=== PATIENT | male | born 1965 | race Caucasian/White ===

== ENCOUNTER → 2020-10-27 10:53 | Outpatient (BNVA) | payer BC, SELFPAY | PROVIDERS: Family Provider General Practice; PCP General Practice; Visit Provider Emergency Medicine | DX: Z20.828 Contact with and (suspected) exposure to other viral communicable diseases (principal) | CPT/HCPCS: 87635 ==

== ENCOUNTER 2025-04-02 15:16 | Oncology outpatient (recurring) (ONCR) | payer BC, SELFPAY ==
[2025-04-02 16:44] LABS: Hematocrit 38.7 % (37-53); Hemoglobin 12.90 g/dL (11.27-16.99); Mean Corpuscular HGB Conc 33.3 g/dL (30-55); Mean Corpuscular Hemoglobin 28.6 pg (27-33); Mean Corpuscular Volume 85.8 fl (82-101); Nucleated Red Blood Cells % 0 %; Platelet Count 116 10^3/cmm (157-399); Red Blood Count 4.51 10^6/uL (3.85-5.65); White Blood Count 5.28 10^3/uL (3.29-11.43)
[2025-04-02 17:11] LABS: Alanine Aminotransferase 37 U/L (0-41); Albumin Level 4.6 g/dL (3.5-5.2); Alkaline Phosphatase 114 U/L (40-130); Anion Gap 19.4 (5-19); Aspartate Amino Transferase 28 U/L (0-40); Blood Urea Nitrogen 15 mg/dL (8-23); Calcium 9.3 mg/dL (8.5-10.5); Carbon Dioxide 20 mmol/L (22-29); Chloride 104 mmol/L (98-107); Creatinine Clr Calc Pharmacy 102.7236; Ferritin 70 ng/mL (30-400); Globulin 2.5 g/dL (1.3-4.6); Glucose 254 mg/dL (65-115); Iron 64 ug/dL (59-158); Osmolality Calculated 299 mOsm/kg (285-295); Potassium 3.4 mmol/L (3.5-5.1); Sodium 140 mmol/L (136-145); Total Iron Binding Capacity 311 mcg/dl; Total Protein 7.1 g/dL (6.6-8.7); Unsaturated Iron Binding 247 ug/dL (112-347)
[2025-04-02 17:23] LABS: Vitamin B12 381 pg/mL (232-1245)
[2025-04-02 19:59] LABS: Hepatitis A Antibody IgM Non-Reactive (Nonreactive); Hepatitis B Surface Antigen Non-Reactive (Nonreactive)
== END 2025-04-14 23:59 | disposition home or self-care (01) ==
PROVIDERS: PCP General Practice; Visit Provider Internal Medicine Medical Oncology
DX: R16.0 Hepatomegaly, not elsewhere classified (principal); D69.6 Thrombocytopenia, unspecified; Z80.2 Family history of malignant neoplasm of other respiratory and intrathoracic organs
CPT/HCPCS: 36415; 80053; 82607; 82728; 82746; 83540; 83550; 85025; 86334; 86705; 86706; 86709; 86803; 87340

== ENCOUNTER 2025-04-30 13:34 | Oncology outpatient (recurring) (ONCR) | payer BC, SELFPAY ==
--- NOTE | 2025-04-26 08:45 | US_ITS ---
WS: [id number] RIGHT UPPER QUADRANT ULTRASOUND HISTORY: Hepatomegaly COMPARISON: None available. Liver: 14.2 cm in length. Normal size liver. Surface nodularity with no mass. Portal Vein: Normal hepatopetal flow with monophasic waveform. Gallbladder: Normally distended gallbladder with no stones or wall thickening. CBD: 0.3 cm Pancreas: Normal size and echogenicity. Right kidney: 10.8 cm in length. Normal size and echogenicity. No hydronephrosis or mass. Aorta and IVC: Unremarkable abdominal aorta and IVC. No ascites. There is a prominent vessel extending along the mid abdomen which I suspect is probably a recanalized umbilical vein. No prior studies. US/US liver [id number] IMPRESSION: 1. Cirrhotic liver. No mass. 2. Negative gallbladder. 3. Suspect recanalized umbilical vein.
== END 2025-05-14 23:59 | disposition home or self-care (01) ==
PROVIDERS: PCP Nurse Practitioner Family; Visit Provider Internal Medicine Medical Oncology
DX: D69.6 Thrombocytopenia, unspecified (principal); R16.0 Hepatomegaly, not elsewhere classified; R93.89 Abnormal findings on diagnostic imaging of other specified body structures; K74.60 Unspecified cirrhosis of liver
CPT/HCPCS: 76705

== ENCOUNTER 2025-05-20 13:36 | Oncology outpatient (recurring) (ONCR) | payer BC, SELFPAY ==
--- NOTE | 2025-05-20 13:45 | MR_ITS ---
WS: [id number] MRI ABDOMEN WITH AND WITHOUT CONTRAST. COMPARISON: Liver ultrasound 04/26/2025 Multiplanar, multisequence imaging is performed with and without contrast. Sagittal and axial T1 fat sat sequences post-MultiHance. History: Cirrhotic liver. Caudate and LEFT hepatic lobes are markedly increased in size as compared to the RIGHT lobe which can be seen with cirrhosis. Surface of the liver is slightly nodular. There is mild diffuse hepatic steatosis. Portal vein is normal. No enhancing mass is identified. Normal portal vein. No intrahepatic duct dilatation. No enhancing masses. Gallbladder is slightly redundant. No wall thickening or enhancement. No stones identified. Enlarged spleen measuring 15.4 cm in length. No enhancing masses. Normal pancreas. No evidence for pancreatitis. No pseudocyst. Normal adrenal glands. Kidneys are normal as visualized. Normal aorta. This visualized the portal vein and the splenic veins appear patent. No adenopathy or ascites. No gastrosplenic varices identified. MR/MR abdomen wo/w con* [id number] IMPRESSION: 1. Hepatic cirrhosis. No liver mass identified. 2. Normal portal vein. 3. Enlarged spleen measuring 15.4 cm in length. 4. No gastric or splenic varices. 5. No ascites.
== END 2025-06-14 23:59 | disposition home or self-care (01) ==
PROVIDERS: PCP Nurse Practitioner Family; Visit Provider Internal Medicine Medical Oncology
DX: D69.6 Thrombocytopenia, unspecified (principal); K74.60 Unspecified cirrhosis of liver; R16.1 Splenomegaly, not elsewhere classified; K76.0 Fatty (change of) liver, not elsewhere classified; R93.2 Abnormal findings on diagnostic imaging of liver and biliary tract
CPT/HCPCS: 74183